=== PATIENT | female | born 2000 | race Caucasian/White ===

== ENCOUNTER 2024-01-17 14:23 | Emergency (ER) | payer BC, MEDICAID, SELFPAY ==
[2024-01-17 14:32] VITALS: BP 138/83; PULSE 91; RESP 16; TEMP 36.7; O2SAT 100
[2024-01-17 15:34] LABS: Rapid Strep A Test Negative (Negative)
--- NOTE | 2024-01-17 15:40 | ED_ITS ---
HPI - General Adult General: Chief complaint: General Medical Stated complaint: sore throat Time Seen by Provider: 01/17/24 15:18 Source: patient Mode of arrival: ambulatory Limitations: no limitations History of Present Illness: Patient is a 23-year-old female presents to ED today initially believing she might be having an allergic reaction. She states earlier today (about 3-4 hours ago) she ate a doughnut and a [employer] approximately 20 to 30 minutes afterwards she felt a funny feeling in her throat like it was scratchy and tingling. She states she took a 25 mg Benadryl at time of my examination feels like she feels better. She appears in no acute distress with stable vital signs. She states she has had similar reactions to cinnamon in the past. She has never had an anaphylactic reaction. She has no throat pain currently. No chest pain, shortness of breath, difficulty breathing. No rash. No abdominal pain vomiting or diarrhea. Onset (ago): hour(s) Location: mouth Relieving factors: other (benadryl) Exacerbating factors: none Associated symptoms: Reports no associated symptoms; Deny chest pain, dyspnea, nausea, rash or vomiting Treatments prior to arrival: other (benadryl) Review of Systems Const: Denies: fever(s) ENMT: Denies: throat pain, uvular edema, enlarged tonsils, odynophagia, wilson rseness, mouth pain, swelling of lips/tongue, oral sores or dental pain Card: Denies: chest pain Resp: Denies: dyspnea GI: Denies: abdominal pain, nausea, vomiting or diarrhea Skin/Breast: Denies: rash, pruritus or erythema Neuro: Denies: dizziness Physical Exam Const: COMMON NORMALS: no acute distress, average body habitus, patient oriented x3, no limitations, healthy appearing, alert and well nourished GENERAL APPEARANCE: cooperative HENMT: FACE & SINUS: normal facial exam MOUTH: Normal oral and palatal mucosa present and lip normal THROAT: posterior oropharynx normal and tonsils normal; no uvular edema Eye: GENERAL EYE: appearance normal, both eyes and all related structures Neck/C-Spine: GENERAL: No anterior neck swelling and No submandibular swelling Resp: COMMON NORMALS: normal respiratory effort and clear to auscultation bilaterally AUSCULTATION: clear to auscultation bilaterally Cardio: COMMON NORMALS: regular rate and regular rhythm RATE: regular rate RHYTHM: regular rhythm GI: COMMON NORMALS: Normal to inspection, nondistended, normoactive bowel sounds present, Soft to palpation and non-tender PALPATION: Yes Soft to palpation Extremity: GENERAL: Yes normal exam except as noted Neuro: COMMON NORMALS: patient oriented x3, moves all extremities, no focal motor deficits and no sensory deficits noted SENSORIUM/ORIENTATION: Yes alert Skin: COMMON NORMALS: no rashes or lesions noted GENERAL SKIN EXAM: no rashes or lesions noted Course Vital Signs: Vital signs: Vital Signs Temperature 98.1 F 01/17/24 14:32 Pulse Rate 91 01/17/24 14:32 Respiratory Rate 16 01/17/24 14:32 Blood Pressure 138/83 01/17/24 14:32 Pulse Oximetry 100 01/17/24 14:32 Oxygen Delivery Me thod Room Air 01/17/24 14:32 MDM - General Adult Medical Decision Making Patient at time of my examination feels much improved. She clinically appears in no acute distress. No evidence for allergic reaction or angioedema at this time. Vital signs are stable. She will be allowed discharge. Strep was obtained from triage based on throat complaint and negative. Medical Records I reviewed the patient's medical records. Lab Data Laboratory Results Group A Strep Rapid Negative (Negative) 01/17/24 15:18 No radiology studies performed this visit Discharge Plan Discharge Patient Disposition: Home Clinical Impression: Sensation of swollen throat Condition: Stable Discharge Orders: Discharge ED (Routine); Ordered 01/17/24 Ordered By: Reyna Gibbons Referrals: Andrae Heath FNP [Primary Care Provider] - Coding Level of Care Code ED [facility] for Pauline Harris
[2024-01-17 16:09] VITALS: BP 123/82; PULSE 96; RESP 14; O2SAT 97
== END 2024-01-17 16:10 | disposition home or self-care (01) ==
PROVIDERS: Emergency Medicine; Emergency Provider Physician Assistant; PCP Registered Nurse
DX: R09.89 Other specified symptoms and signs involving the circulatory and respiratory systems (principal)
CPT/HCPCS: 87081; 87880; 99283

== ENCOUNTER → 2024-10-08 11:21 | Outpatient (BNVA) | payer BC, MEDICAID, SELFPAY | PROVIDERS: PCP Registered Nurse; Visit Provider Orthopaedic Surgery | DX: G56.03 Carpal tunnel syndrome, bilateral upper limbs (principal); M67.432 Ganglion, left wrist; Z98.890 Other specified postprocedural states | CPT/HCPCS: 73110 ==